=== PATIENT | female | born 1945 | race Caucasian/White ===

== ENCOUNTER 2022-03-21 07:54 | Day surgery (SDC) | payer OTHER ==
[~2022-03-21] VITALS: Ht 152.4 cm; Wt 62.8 kg
[~2022-03-21 07:54] MED LIST: (None)50 MG; ALBU90OI INH; ALPR.25 PO; ALPR.5 PO; ASPI81CH PO; AZIT250 PO; Abilify5 MG PO; BACL10 PO; BUSP5 PO; CALCA500CH PO; CELE200 PO; CENTRUM SILVER1 EAC2 PO; CHOL10002; CHOL10002 PO; CIPR500 PO; CLON.1 PO; Cleocin HCl150 MG PO; Crestor20 MG PO; DOCSEN PO; DULO60 PO; Dazidox10 MG; ENAL20 PO; FENT25TP TOP; FLUC150A PO; FLUC200 PO; FURO20 PO; LISI20 PO; MECL25 PO; METO25ER PO; METO50 PO; METO50ER PO; METR500 PO; MULVITMINF PO; NICO21TP TOP; NYST100TO TOP; OMEP40CA12 PO; ONDA4ODT MM; OXYC5 PO; POTCHL20ER PO; PRED20 PO; Prednisone20 MG PO; SIMV10 PO; TOLTERODINE TART4 MG PO; TRAZ50 PO; VALS80 PO; VANC125 PO; Vitamin C1000 M1 PO
--- NOTE | 2022-03-21 08:44 | NUR ---
03/21/22 0844 Nancy Ferrera AT 0841 [place] AT 0842
[2022-03-21] MEDS ORDERED: ALBU90OI INH (08:47)
[2022-03-21] MEDS ORDERED: ONDA4ODT (08:51)
== END 2022-03-21 10:12 | disposition home or self-care (01) ==
LOC: ORSCSDS 07:54
PROVIDERS: Ophthalmology
PROC: 08RK3JZ Replacement of Left Lens with Synthetic Substitute, Percutaneous Approach (ICD-10-PCS; principal; 2022-03-21 09:30)
DX: H25.12 Age-related nuclear cataract, left eye (principal); I10 Essential (primary) hypertension; Z86.73 Personal history of transient ischemic attack (TIA), and cerebral infarction without residual deficits; J44.9 Chronic obstructive pulmonary disease, unspecified; R06.02 Shortness of breath; H35.30 Unspecified macular degeneration; I63.9 Cerebral infarction, unspecified; F17.210 Nicotine dependence, cigarettes, uncomplicated; Z79.899 Other long term (current) drug therapy
CPT/HCPCS: J2001; J2250; J3010; J3301; J7040; V2632

== ENCOUNTER 2023-07-21 15:07 | Inpatient (IN) | payer OTHER ==
[~2023-07-21] VITALS: Ht 152.4 cm; Wt 71.1 kg
[~2023-07-21 15:07] MED LIST changes: +C COMPLEX1000 M1 PO; -CHOL10002; +ONDA4ODT; +VITAMIN D31000 UNI1 PO; -Vitamin C1000 M1 PO
[2023-07-21 15:41] LABS: BASOPHILS ABSOLUTE AUTO 0.04 K/mm3 (0.00-0.23); BASOPHILS PERCENT AUTO 0 % (0-2); EOSINOPHILS ABSOLUTE AUTO 0.02 K/mm3 (0.00-0.68); EOSINOPHILS PERCENT AUTO 0 % (0-6); Hematocrit 42.8 % (33.0-51.0); IMMATURE GRAN ABSOLUTE AUTO 0.07 K/mm3 (0.00-0.10); IMMATURE GRAN PERCENT AUTO 1 % (0-1); LYMPHOCYTES ABSOLUTE AUTO 1.03 K/mm3 (0.84-5.20); LYMPHOCYTES PERCENT AUTO 10 % (21-46); MONOCYTES ABSOLUTE AUTO 1.15 K/mm3 (0.16-1.47); MONOCYTES PERCENT AUTO 11 % (4-13); Mean Corpuscular HGB 29.1 pg (26.0-34.0); Mean Corpuscular HGB Conc 32.7 g/dL (31.5-36.5); Mean Corpuscular Volume 89 fL (80-100); Mean Platelet Volume 10.9 fL (9.1-12.4); NEUTROPHILS ABSOLUTE AUTO 8.16 K/mm3 (1.96-9.15); NEUTROPHILS PERCENT AUTO 78 % (41-73); Platelet Count 243 K/mm3 (150-400); RDW Coefficient Variation 15.3 % (11.7-14.2); RDW Standard Deviation 49.6 fL (35.1-46.3); Red Blood Cell Count 4.81 M/mm3 (3.80-5.20); White Blood Cell Count 10.47 K/mm3 (4.00-11.30)
[2023-07-21 16:16] LABS: Influenza B, PCR NEGATIVE (NEGATIVE); Resp Syncytial Virus, PCR NEGATIVE (NEGATIVE); SARS-Cov-2 (COVID-19) PCR, MMC NEGATIVE (NEGATIVE)
[2023-07-21 16:20] LABS: Albumin, Blood 3.1 g/dL (3.4-5.0); Albumin/Globulin Ratio 0.8 (0.8-1.8); Bilirubin, Total 0.4 mg/dL (0.1-1.0); Bun/Creatinine Ratio 21.1 (12.0-20.0); Calcium, Blood 8.4 mg/dL (8.5-10.1); Creatinine, Blood 0.86 mg/dL (0.40-1.00); Globulin, Blood 4.1 g/dL (2.2-4.0); Potassium, Blood 3.6 mmol/L (3.5-5.5); Total Protein, Blood 7.2 g/dL (6.4-8.2)
[2023-07-21 16:28] LABS: Influenza A, PCR POSITIVE (NEGATIVE)
[2023-07-21] MEDS ORDERED: METO50 PO (20:14)
[2023-07-21] MEDS ORDERED: AMLODIPINE BESYL5 MG PO (20:17)
[2023-07-21] MEDS ORDERED: OXYC10TA19 PO (20:18)
[2023-07-21 20:36] LABS: Base Excess Venous -2.4 mmol/L; Bicarbonate Venous 22.6 mmol/L (24.0-30.0); pH Blood Venous 7.37 (7.34-7.37)
--- NOTE | 2023-07-21 20:57 | NUR ---
ASSUMED CARE OF PT. PT ARRIVED TO ROOM AT 20:55 VIA GURNEY AND WAS TRANSFERED ONTO BED WITH SLIDE SHEET. PT ORIENTED TO ROOM AND CALL LIGHT. PT REQUESTED DAUGHTER IN LAW TO BE INFORMED, CALL PLACED TO FAMILY MEMBER.
[2023-07-21 21:12] VITALS: BP 145/83
[2023-07-22 03:20] VITALS: BP 138/98
--- NOTE | 2023-07-22 04:16 | NUR ---
SHIFT SUMMARY PT RESPONDS TO VERBAL STIMULI AND IS ORIENTED TO SELF, TIME, SITUATION, AND PLACE. SKIN ASSESSMENT PERFORMED AND PICTURES IN CHART. PT HAS EXTENSIVE REDNESS IN FOLDS UNDER BREASTS AND ABDOMEN. POWDER WAS APPLIED PER EMAR. PT BREATHING APPEARS LABORED BUT O2 SATS REMAIN OVER 90%. PT ASSESSED BY RT. NO ACUTE EVENTS AT THIS TIME. VSS. PT ORIENTED TO ROOM AND UNIT. PT HAS SLEPT THROUGH THE NIGHT AND IS SNORING. PT ORIENTED TO ROOM UPON ARRIVAL. PT LEFT IN A POSITION OF SAFETY WITH FALL PRECAUTIONS IN PLACE AND CALL LIGHT IN REACH.
[2023-07-22 05:43] LABS: BASOPHILS ABSOLUTE AUTO 0.01 K/mm3 (0.00-0.23); BASOPHILS PERCENT AUTO 0 % (0-2); EOSINOPHILS PERCENT AUTO 0 % (0-6); Hematocrit 39.3 % (33.0-51.0); Hemoglobin 12.9 g/dL (11.5-16.0); IMMATURE GRAN ABSOLUTE AUTO 0.08 K/mm3 (0.00-0.10); IMMATURE GRAN PERCENT AUTO 1 % (0-1); LYMPHOCYTES ABSOLUTE AUTO 1.15 K/mm3 (0.84-5.20); LYMPHOCYTES PERCENT AUTO 12 % (21-46); MONOCYTES ABSOLUTE AUTO 0.38 K/mm3 (0.16-1.47); MONOCYTES PERCENT AUTO 4 % (4-13); Mean Corpuscular HGB 29.3 pg (26.0-34.0); Mean Corpuscular HGB Conc 32.8 g/dL (31.5-36.5); Mean Corpuscular Volume 89 fL (80-100); Mean Platelet Volume 9.7 fL (9.1-12.4); NEUTROPHILS ABSOLUTE AUTO 7.94 K/mm3 (1.96-9.15); NEUTROPHILS PERCENT AUTO 83 % (41-73); Platelet Count 186 K/mm3 (150-400); RDW Coefficient Variation 15.2 % (11.7-14.2); RDW Standard Deviation 50.1 fL (35.1-46.3); White Blood Cell Count 9.56 K/mm3 (4.00-11.30)
[2023-07-22 06:08] LABS: Albumin, Blood 2.7 g/dL (3.4-5.0); Albumin/Globulin Ratio 0.7 (0.8-1.8); Bilirubin, Total 0.3 mg/dL (0.1-1.0); Calcium, Blood 8.2 mg/dL (8.5-10.1); Creatinine, Blood 0.84 mg/dL (0.40-1.00); Potassium, Blood 4.3 mmol/L (3.5-5.5); Total Protein, Blood 6.7 g/dL (6.4-8.2)
[2023-07-22 07:54] VITALS: BP 120/74
[2023-07-22 13:22] LABS: Source, Urine Clean Catch
[2023-07-22 13:29] LABS: Bilirubin, Urine Neg (Neg); Blood, Urine 4+ (Neg); Color, Urine Yellow (P-Yellow); Glucose Qualitative, Urine Neg (Neg); Ketones, Urine 1+ (Neg); Leukocyte Esterase, Urine Neg (Neg); Nitrite, Urine Neg (Neg); Protein, Urine 2+ (Neg); Urobilinogen, Urine NORM (Normal)
[2023-07-22 13:59] LABS: Appearance, Urine Clear (Clear)
[2023-07-22 14:01] LABS: Bacteria Mod /hpf; Squamous Epithelial Cells Few /hpf (Few); White Blood Cells, Urine 0-2 /hpf (0-5)
[2023-07-22 15:48] VITALS: BP 131/80
--- NOTE | 2023-07-22 17:54 | NUR ---
SHIFT SUMMARY: PT IS A 77 YEAR OLD FEMALE HERE FOR ACUTE RESPIRATORY FAILURE SECONDARY TO COPD AND INFLUENZA A. SHE IS ALERT AND ORIENTED X4, PLEASANT AND COOPERATIVE WITH CARE AND USES HER CALL LIGHT TO MAKE HER NEEDS MED. SHE IS A 1 PERSON STAND BY ASSIST AND IS CONTINENT/INCONTINENT. HER BASELINE IS ROOMAIR, BUT IS REQUIRING OXYGEN SUPPLEMENTAL CURRENTLY AT 3.5 LITER TO MAINTAIN AN OXYGEN SATURATION OF 92%. GOAL IS TO TRY AND GET HER BACK TO BASELINE WHICH IS ROOMAIR PRIOR TO DISCHARGING HOME. SHE IS IN BED AT THIS TIME, EATING DINNER, CALL LIGHT WITHIN REACH, BED IN LOWEST POSITION, AND NO SIGNS OR SYMPTOMS OF DISTRESS. PLAN OF CARE ONGOING.
[2023-07-22 19:34] VITALS: BP 122/76
[2023-07-23 03:40] VITALS: BP 123/75
--- NOTE | 2023-07-23 04:05 | NUR ---
SHIFT SUMMARY ADMITTED FOR RESPIRATORY FAILURE/UTI. FULL CODE. DROPLET/CONTACT PRECAUTIONS FOR FLU. TAMIFLU AND STEROIDS ARE SCHEDULED. 3 1/2 LPM O2 VIA NC, ON RA AT BASELINE. HX OF COPD. 1 ASSIST W/FWW - BRP. A&O X4. YEAST IN FOLDS OF SKIN OF TRUNK AND BREN AREA. CARDIAC DIET. NO NEW CONCERNS THIS SHIFT
[2023-07-23 06:56] LABS: Bun/Creatinine Ratio 29.8 (12.0-20.0); Calcium, Blood 8.5 mg/dL (8.5-10.1); Creatinine, Blood 0.84 mg/dL (0.40-1.00); Potassium, Blood 4.9 mmol/L (3.5-5.5)
[2023-07-23 08:01] VITALS: BP 127/70
[2023-07-23] MEDS ORDERED: MICONAZOLE NIT130 GM TOP (12:49)
[2023-07-23] MEDS ORDERED: NICO21TP TOP (12:49)
[2023-07-23] MEDS ORDERED: CENTRUM SILVER1 EAC2 PO (12:49)
[2023-07-23] MEDS ORDERED: TRELEGY ELLIPT1 EACH INH (12:50)
[2023-07-23] MEDS ORDERED: OSELTAMIVIR PHO30 M2 PO (12:50)
[2023-07-23] MEDS ORDERED: Deltasone 10 mg10 MG PO (12:51)
--- NOTE | 2023-07-23 18:27 | NUR ---
DISCHARGE NOTE: PT'S DAUGHTER IN LAW AND GRANDDAUGHTER ARRIVED TO TAKE THE PATIENT HOME. KOSTA CAME BY AND BROUGHT A OXYGEN TANK FOR OXYGEN TRANSPORT AND WILL BE MEETING THE PATIENT AT HOME TO SET UP HER OXYGEN CONCENTRATOR. DISCHARGE WENT OVER WITH PATIENT AND HER FAMILY. BELONGINGS COLLECTED AND PATIENT TRANSPORTED VIA WHEELCHAIR TO [facility]. NO SIGNS OR SYMPTOMS OF DISTRESS DURING DISCHARGE.
== END 2023-07-23 18:26 | disposition home health service (06) | DRG 193 ==
LOC: ER 15:07 → MEDS 18:43
PROVIDERS: Internal Medicine; Student in an Organized Health Care Education/Training Program; ADMIT Internal Medicine
DX: J10.1 Influenza due to other identified influenza virus with other respiratory manifestations (principal); J96.01 Acute respiratory failure with hypoxia; J44.1 Chronic obstructive pulmonary disease with (acute) exacerbation; J44.0 Chronic obstructive pulmonary disease with (acute) lower respiratory infection; B37.2 Candidiasis of skin and nail; I10 Essential (primary) hypertension; I25.10 Atherosclerotic heart disease of native coronary artery without angina pectoris; F32.A Depression, unspecified; F17.210 Nicotine dependence, cigarettes, uncomplicated; J20.8 Acute bronchitis due to other specified organisms; G89.29 Other chronic pain; M54.9 Dorsalgia, unspecified; M19.90 Unspecified osteoarthritis, unspecified site; G44.89 Other headache syndrome; Z95.1 Presence of aortocoronary bypass graft; Z86.73 Personal history of transient ischemic attack (TIA), and cerebral infarction without residual deficits; Z88.5 Allergy status to narcotic agent; Z88.8 Allergy status to other drugs, medicaments and biological substances; Z88.0 Allergy status to penicillin; Z79.82 Long term (current) use of aspirin; Z79.1 Long term (current) use of non-steroidal anti-inflammatories (NSAID); Z11.52 Encounter for screening for COVID-19
CPT/HCPCS: 0241U; 36415; 71046; 80048; 80053; 81001; 82803; 83880; 84484; 85025; 87070; 87086; 87205; 93005; 93010; 94640; 94664; 94760; 94761; 96361; 96374; 97110; 97112; 97116; 97161; 97166; 97530; 97535; 99285-25; A9270; J1100; J1650; J2930; J7030

== ENCOUNTER 2024-10-16 16:20 | Inpatient (IN) | payer OTHER ==
[~2024-10-16] VITALS: Ht 152.4 cm; Wt 76.9 kg
[~2024-10-16 16:20] MED LIST changes: +AMLODIPINE BESYL5 MG PO; +Deltasone 10 mg10 MG PO; +MICONAZOLE NIT130 GM TOP; +OSELTAMIVIR PHO30 M2 PO; +OXYC10TA19 PO; +TRELEGY ELLIPT1 EACH INH
[2024-10-16 17:19] LABS: BASOPHILS ABSOLUTE AUTO 0.01 K/mm3 (0.00-0.23); BASOPHILS PERCENT AUTO 0 % (0-2); EOSINOPHILS PERCENT AUTO 0 % (0-6); Hematocrit 21.3 % (33.0-51.0); Hemoglobin 6.9 g/dL (11.5-16.0); IMMATURE GRAN ABSOLUTE AUTO 0.04 K/mm3 (0.00-0.10); IMMATURE GRAN PERCENT AUTO 1 % (0-1); LYMPHOCYTES ABSOLUTE AUTO 1.29 K/mm3 (0.84-5.20); LYMPHOCYTES PERCENT AUTO 15 % (21-46); MONOCYTES ABSOLUTE AUTO 0.61 K/mm3 (0.16-1.47); MONOCYTES PERCENT AUTO 7 % (4-13); Mean Corpuscular HGB 29.7 pg (26.0-34.0); Mean Corpuscular HGB Conc 32.4 g/dL (31.5-36.5); Mean Corpuscular Volume 92 fL (80-100); Mean Platelet Volume 10.3 fL (9.1-12.4); NEUTROPHILS ABSOLUTE AUTO 6.61 K/mm3 (1.96-9.15); NEUTROPHILS PERCENT AUTO 77 % (41-73); Platelet Count 125 K/mm3 (150-400); RDW Coefficient Variation 14.2 % (11.7-14.2); RDW Standard Deviation 47.5 fL (35.1-46.3); Red Blood Cell Count 2.32 M/mm3 (3.80-5.20); White Blood Cell Count 8.56 K/mm3 (4.00-11.30)
[2024-10-16] MEDS ORDERED: NS 1,000 ML IV SCH (17:25)
[2024-10-16 17:55] LABS: Albumin, Blood 1.7 g/dL (3.4-5.0); Albumin/Globulin Ratio 0.8 (0.8-1.8); Bun/Creatinine Ratio 30.3 (12.0-20.0); Calcium, Blood 5.2 mg/dL (8.5-10.1); Creatinine, Blood 0.73 mg/dL (0.40-1.00); Globulin, Blood 2.2 g/dL (2.2-4.0); Potassium, Blood 2.9 mmol/L (3.5-5.5); Total Protein, Blood 3.9 g/dL (6.4-8.2)
[2024-10-16] MEDS ORDERED: Potassium Chloride 40 MEQ in NS 250 ML IV ONE (18:35)
[2024-10-16] MEDS ORDERED: FLU VACC TS2024-25(6MOS UP)/PF 45 MCG/0.5 ML SYRINGE IM SCH (20:00)
[2024-10-16] MEDS ORDERED: Sodium Chloride 0.45% 1,000 ML IV SCH (20:00)
[2024-10-16] MEDS ORDERED: Ondansetron HCl 2 MG / ML 2ML Vial IV PRN (20:00)
[2024-10-16] MEDS ORDERED: FentaNYL Citrate 50 MCG/ML 2 ML Injection IV PRN (20:00)
[2024-10-16] MEDS ORDERED: Albumin (Human) 25gm/100ml 100 ML IV ONE (20:05)
[2024-10-16] MEDS ORDERED: CALCIUM GLUC IN NACL, ISO-OSM 50 ML IV ONE (20:05)
[2024-10-16] MEDS ORDERED: Magnesium Sulf 2 GM/Water 50ML 50 ML IV ONE (20:05)
[2024-10-16 21:12] LABS: International Normalized Ratio 1.04; Prothrombin Time Results 11.1 Sec (9.7-11.5)
[2024-10-16] MEDS ORDERED: NS 1,000 ML IV ONE (22:18)
[2024-10-16 23:59] VITALS: BP 145/79
[2024-10-17] VITALS (53 sets, daily range): BP systolic 51–151; BP diastolic 22–141
[2024-10-17] MEDS ORDERED: HYDROmorphone HCl 2 MG Tab PO PRN (00:20)
[2024-10-17] MEDS ORDERED: Albuterol HFA200 ACT/6.7 GM INH INH PRN (00:35)
[2024-10-17] MEDS ORDERED: Miconazole Nitrate 2% 85 GM PWD TOP SCH (05:10)
[2024-10-17 05:33] LABS: BASOPHILS ABSOLUTE AUTO 0.03 K/mm3 (0.00-0.23); BASOPHILS PERCENT AUTO 0 % (0-2); EOSINOPHILS PERCENT AUTO 0 % (0-6); Hematocrit 30.3 % (33.0-51.0); Hemoglobin 10.1 g/dL (11.5-16.0); IMMATURE GRAN ABSOLUTE AUTO 0.07 K/mm3 (0.00-0.10); IMMATURE GRAN PERCENT AUTO 1 % (0-1); LYMPHOCYTES ABSOLUTE AUTO 1.87 K/mm3 (0.84-5.20); LYMPHOCYTES PERCENT AUTO 13 % (21-46); MONOCYTES ABSOLUTE AUTO 1.04 K/mm3 (0.16-1.47); MONOCYTES PERCENT AUTO 7 % (4-13); Mean Corpuscular HGB 29.3 pg (26.0-34.0); Mean Corpuscular HGB Conc 33.3 g/dL (31.5-36.5); Mean Corpuscular Volume 88 fL (80-100); Mean Platelet Volume 10.9 fL (9.1-12.4); NEUTROPHILS ABSOLUTE AUTO 11.58 K/mm3 (1.96-9.15); NEUTROPHILS PERCENT AUTO 79 % (41-73); Platelet Count 194 K/mm3 (150-400); RDW Coefficient Variation 14.7 % (11.7-14.2); RDW Standard Deviation 45.9 fL (35.1-46.3); Red Blood Cell Count 3.45 M/mm3 (3.80-5.20); White Blood Cell Count 14.59 K/mm3 (4.00-11.30)
[2024-10-17 06:06] LABS: Albumin, Blood 3.5 g/dL (3.4-5.0); Bilirubin, Total 1.3 mg/dL (0.1-1.0); Bun/Creatinine Ratio 30.7 (12.0-20.0); Creatinine, Blood 1.5 mg/dL (0.40-1.00)
[2024-10-17 06:07] LABS: Globulin, Blood 3.4 g/dL (2.2-4.0)
[2024-10-17 06:09] LABS: Calcium, Blood 9.1 mg/dL (8.5-10.1); Potassium, Blood 4.9 mmol/L (3.5-5.5); Total Protein, Blood 6.9 g/dL (6.4-8.2)
--- NOTE | 2024-10-17 08:33 | NUR ---
[employer]IR TRANSPORT PROFESSIONALS SUMMARY PT ADMITTED FROM THE ER AROUND MIDNIGHT FOR A NEW FEMUR FRACTURE. LARGE R THIGH HEMATOMA. 1U PBRCS STARTED IN THE ER AND FINISHED ON THE UNIT. BLOOD TRANSFUSION DOCUMENTION ALL DONE ON PAPER. ELECTROLYTES REPLACED IV. PT KEPT NPO FOR SURGERY TODAY. PT HAS BEEN INTERMITTENLY CONFUSED, UNRELATED TO PAIN MEDICATION (CONFUSION STARTED BEFORE PAIN MEDS AND DID NOT GET WORSE WITH MEDICATION). PER REPORT FROM THE SINGLE RESOURCE BOSS, HER FAMILY HAD SAID THAT PT IS CONFUSED AT HOME WELL. SHE WAS ORIENTED TO SELF, PLACE AND SITUATION BUT NOT TIME AND HAVING MILD HALLUCINATIONS, BOTH VISUAL AND AUDITORY. PT USES 4L O2 AT HOME FOR HER COPD AND HAS BEEN USING 4L 02 ALL NIGHT HERE WELL. PT ADMITTED WITH SEVERE YEAST RASH TO GROIN/PANNUS/UNDER BREASTS. AREA CLEANSED AND MD NOTIFIED, ORDERS FOR MICONAZOLE POWDER RECEIVED AND APPLIED. ON ARRIVAL TO UNIT, PT HAS A FULL BLADDER AND CANNOT VOID USING THE PUREWICK OR THE BEDPAIN OR DEPENDS. SHE IS TEARFUL AND IN DISTRESS RELATED TO THIS. SHE IS BEGGING TO SIT ON THE TOILET BUT IS ON STRICT BEDREST SHE WILL NEED SURGERY TODAY FOR A NEW FEMUR FRACTURE. NOTIFIED AND MARQUEZ ORDERED FOR RETENTION. MARQUEZ PLACED. PT IS INCONTINENT OF BOWEL AND HAS HAD 4 BOWEL MOVEMENTS IN 4 HOURS SHE IS ONLY LETTING OUT A LITTLE AT A TIME BUT DOESNT HAVE DIARRHEA. BED ALARM ON.
[2024-10-17] MEDS ORDERED: ARIPiprazole 5 MG Tab PO SCH (09:00)
[2024-10-17] MEDS ORDERED: Metoprolol Tartrate 50 MG Tab PO SCH (09:00)
[2024-10-17] MEDS ORDERED: DULoxetine HCL 60 MG Capsule DR PO SCH (09:00)
[2024-10-17] MEDS ORDERED: Aspirin 81 MG Chew PO SCH (09:00)
--- NOTE | 2024-10-17 13:00 | NUR ---
PT ARRIVED TO 217 AT APPROXIMATELY 1130. PT ALERT AND ORIENTED X2-3, SHE WAS ABLE TO ORIENT HERSELF TO SITUATION BUT NEEDED RE-ORIENTED TO THE DATE. HEMATOMA NOTED TO R THIGH, REDNESS UNDER BREASTS AND PANNUS, AND SCATTERED SCABS/ABRASIONS TO BUE. PT'S BLE ARE DISCOLORED, PEDAL AND TIBIAL PULSES FAINT, CAP REFIL LESS THAN 3 SECONDS. R LEG SHORTENED AND EXTERNALLY ROTATED. PT PROVIDED WITH CALL LIGHT AND EDUCATED TO USE. FAMILY ARRIVED TO THE BEDSIDE AT APPROXIMATELY 1150. PT PLACED ON CONTINOUS PULSE OX. PT ON 4L O2 VIA NC, PER PT'S FAMILY THIS IS HER BASELINE O2 USE.
[2024-10-17] MEDS ORDERED: NS 1,000 ML IV ONE (16:08)
[2024-10-17 16:19] LABS: Hematocrit 26.5 % (33.0-51.0); Hemoglobin 8.4 g/dL (11.5-16.0)
--- NOTE | 2024-10-17 16:30 | NUR ---
PROVIDER VERBAL ORDER: This RN received verbal order from Dr. Butler while at bedside in room 217 for transfer to ICU.
[2024-10-17 16:38] LABS: Bun/Creatinine Ratio 33.5 (12.0-20.0); Calcium, Blood 8.2 mg/dL (8.5-10.1); Creatinine, Blood 1.64 mg/dL (0.40-1.00); Potassium, Blood 5.5 mmol/L (3.5-5.5)
--- NOTE | 2024-10-17 17:09 | NUR ---
AT 1545 KEESHA LOBATO REPORTED TO THIS RN THAT SHE AND ADVISOR TO COMMAND IN COMBAT STUDENT WERE HAVING DIFFICULTY REPOSITIONING PATIENT. THIS RN WENT TO THE BEDSIDE TO ASSIST WITH REPOSITIONING. PT FOUND LAYING IN BED SLIGHTLY ON HER RIGHT SIDE AND FLAT. PT'S RESP RATE ELEVATED AND PT REPORTING SHE WAS SHORT OF BREATH. THIS RN AND KEESHA ASSISTED PT TO REPOSITION IN BED FOR EASE OF BREATHING. RESP RATE AND EFFORT IMPROVED AFTER REPOSITIONING. LUNGS SOUNDS CLEAR T/O EXCEPT FOR CRACKLES TO THE L BASE. VS OBTAINED BY ADVISOR TO COMMAND IN COMBAT, HR ELEVATED 130-140, BP WNL BUT LOWER THAN AM VS. R THIGH SWELLING APPEARS INCREASED, MEDIAL AND POSTERIOR THIGH FEEL MORE FIRM THAT WHEN PT ARRIVED TO THE UNIT. PT ALSO COMPLAINING OF INCREASED PAIN. PEDIAL AND TIBIAL PULSES NO LONGER PALPABLE ON THE RIGHT SIDE, PULSES FOUND USING DOPPLER. L PEDIAL AND TIBIAL PULSES PRESENT AND PALPABLE BUT FAINT, THEY WERE ALSO CONFIRMED BY DOPPLER. R FOOT APPEARS MORE DUSKY, CAP REFIL 2-3 SECONDS. UNABLE TO PALPATE RADIAL PULSE. DIFFICULTY OBTAINING A O2 SATURATION, WHEN SATURATION WAS OBTAINED IT WAS BETWEEN 97 AND 100% ON 4L O2 VIA NC. FRONT OF HOUSE MANAGER CARLOS NOTIFIED OF CHANGES, SHE CAME TO PT'S BEDSIDE TO ASSIST WITH IV ACCESS. DR. SOLIS NOTIFIED AND HER PRESENCE WAS REQUESTED AT THE BEDSIDE. THIS RN AND FRONT OF HOUSE MANAGER CARLOS WERE UNABLE TO PALPATE RADIAL PULSES AT THAT TIME BUT PT AWAKE AND ALERT. EKG COMPLETED SHOWING SINUS TACH AT 125. DR. SOLIS ORDERED TRANSFER TO ICU, SHE NOTIFIED PT'S FAMILY OF TRANSFER AND DR. PRICE. CT ORDERED TO RULE OUT COMPARTMENT SYNDROME. RACING BOARD MARKER ASHLEE TOMLINSON PRESENT AT THE BEDSIDE FOR REPORT. PT TAKEN TO ICU AT 1620. IMAGING DEPARTMENT NOTIFIED OF TRANFER TO ICU.
[2024-10-17] MEDS ORDERED: FentaNYL Citrate 50 MCG/ML 2 ML Injection IV PRN (17:43)
[2024-10-17] MEDS ORDERED: NS 500 ML IV ONE (17:44)
[2024-10-17] MEDS ORDERED: NS 500 ML IV SCH (17:45)
[2024-10-17] MEDS ORDERED: NS 1,000 ML IV SCH ×2 (17:55→20:20)
--- NOTE | 2024-10-17 19:46 | NUR ---
SHIFT SUMMARY: Pt arrived to ICU 1624 from surgical floor. Upon arrival pt was alert and orient to self and situation. She was confused on location and date. She was immediatly taken to CT. Pt reports significant pain for which she was given fentanyl. Daughter Ana at bedside for short time and received update. Blood transfusion initiated. This RN unable to obtain second IV. During bedside report, this RN noted rapid decompensation of blood pressure and pt became pale. integrated marketing manager and Dr Arrington called to bedside. NS increased to wide open.
[2024-10-17 20:32] LABS: PCO2 Arterial 29.7 mmHg (35-45); PO2 Arterial 94.3 mmHg (80-100); pH Blood Arterial 7.35 (7.35-7.45)
[2024-10-17] MEDS ORDERED: Ipratropium/Albuterol SulF 2.5-0.5MG/3 ML Amp INH SCH (20:40)
[2024-10-17] MEDS ORDERED: Albuterol 2.5 MG/3 ML VIAL INH PRN (20:40)
[2024-10-17 21:10] LABS: Hematocrit 35.7 % (33.0-51.0); Hemoglobin 12.1 g/dL (11.5-16.0)
[2024-10-17] MEDS ORDERED: CALCIUM GLUC IN NACL, ISO-OSM 50 ML IV ONE (21:25)
[2024-10-17] MEDS ORDERED: NS 250 ML IV PRN (22:25)
[2024-10-17 23:13] LABS: Hematocrit 35.4 % (33.0-51.0)
--- NOTE | 2024-10-18 00:23 | NUR ---
EVENT SUMMARY 1929- PT BECAME HYPOTENSIVE AND TACHY, DR FRANCIS AND DR ROUSSEAU AT BEDSIDE. PULSES FOUND IN R FOOT W/ DOPPLER. LEVO STARTED AT 2MCG/MIN VIA SANJAY PIV THAT FLUSHES AND DRAWS BACK. 1 UNIT PRBC'S FINISHED INFUSING AT THIS TIME. 1954- CL PLACED TO [facility], CHEST XRAY CONFIRMED PLACEMENT, 2 UNITS PRBC'S IN RAPID TRANSFUSER INFUSING TO CL. PT HAD TOTAL OF 3 UNITS PRBC'S THIS SHIFT. 2099- BLOOD TRANSFUSION COMPLETE, PT'S VS IMPROVED, MAPS > 65, HR 90'S, ON 4L NC W/ SATS IN THE 90'S, AFEBRILE. R LEG IS SWOLLEN AND BRUISED, MEASURED AND MARKED BORDERS. H+H DRAWN. 2199- PT ACCEPTED FOR TRANSFER TO [facility]. PT'S FAMILY NOTIFIED AND GAVE CONSENT FOR TRANSFER. 2344- EMS ARRIVED, PT VSS, MEDICATED FOR PAIN. REPORT CALLED TO ACCEPTING NURSE. PT SENT WITH LEVO INFUSING AT 1MCG/MIN AND NS INFUSING AT 100 ML/H. PT DID NOT HAVE ANY PERSONAL BELONGINGS. ESCORTED OUT WITH EMS.
== END 2024-10-17 23:45 | disposition short-term general hospital (02) | DRG 533 ==
LOC: ER 16:20 → ICUE 19:57 → MEDS 19:57 → ERHOLD 19:57 → MEDS 23:54 → SURS 10-17 11:46 → ICUE 10-17 16:31
PROVIDERS: Internal Medicine; Internal Medicine Critical Care Medicine; Student in an Organized Health Care Education/Training Program; ADMIT Internal Medicine
PROC: 30233N1 Transfusion of Nonautologous Red Blood Cells into Peripheral Vein, Percutaneous Approach (ICD-10-PCS; principal; 2024-10-17)
PROC: 3E043XZ Introduction of Vasopressor into Central Vein, Percutaneous Approach (ICD-10-PCS; 2024-10-17)
PROC: 05HN33Z Insertion of Infusion Device into Left Internal Jugular Vein, Percutaneous Approach (ICD-10-PCS; 2024-10-17)
PROC: 30233J1 Transfusion of Nonautologous Serum Albumin into Peripheral Vein, Percutaneous Approach (ICD-10-PCS; 2024-10-17)
DX: S72.301A Unspecified fracture of shaft of right femur, initial encounter for closed fracture (principal); S75.011A Minor laceration of femoral artery, right leg, initial encounter; E87.1 Hypo-osmolality and hyponatremia; M62.82 Rhabdomyolysis; E87.0 Hyperosmolality and hypernatremia; W18.30XA Fall on same level, unspecified, initial encounter; M54.9 Dorsalgia, unspecified; G89.29 Other chronic pain; I10 Essential (primary) hypertension; M19.90 Unspecified osteoarthritis, unspecified site; E88.09 Other disorders of plasma-protein metabolism, not elsewhere classified; I95.9 Hypotension, unspecified; J43.9 Emphysema, unspecified; F03.90 Unspecified dementia, unspecified severity, without behavioral disturbance, psychotic disturbance, mood disturbance, and anxiety; D63.8 Anemia in other chronic diseases classified elsewhere; J44.9 Chronic obstructive pulmonary disease, unspecified; I25.10 Atherosclerotic heart disease of native coronary artery without angina pectoris; F17.210 Nicotine dependence, cigarettes, uncomplicated; Z86.73 Personal history of transient ischemic attack (TIA), and cerebral infarction without residual deficits; Z90.710 Acquired absence of both cervix and uterus; Z98.890 Other specified postprocedural states; Z95.1 Presence of aortocoronary bypass graft; E87.6 Hypokalemia; E83.51 Hypocalcemia; E86.0 Dehydration; Z88.5 Allergy status to narcotic agent; Z88.1 Allergy status to other antibiotic agents; Z88.8 Allergy status to other drugs, medicaments and biological substances; Z79.82 Long term (current) use of aspirin; Z79.899 Other long term (current) drug therapy
CPT/HCPCS: 36415; 36430; 36556; 36600; 71045; 73552; 73590; 73701; 80048; 80053; 82330; 82550; 82803; 82947; 83735; 83880; 84484; 85014; 85018; 85025; 85610; 85730; 86850; 86900; 86901; 86923; 93005; 93010; 94762; 99285-25; A9270; C1751; J0612; J3010; J3475; J3480; J7030; J7040; J7050; J7060; P9016; P9047; Q9967